=== PATIENT | female | born 1945 | race Caucasian/White ===

== ENCOUNTER 2021-09-09 10:45 | Inpatient (IN) | payer OTHER, MEDICAID ==
[~2021-09-09] VITALS: Ht 165.1 cm; Wt 79.1 kg
[2021-09-09 10:50] VITALS: BP_SYST 136
--- NOTE | 2021-09-09 10:50 | NUR ---
Pt to bed 4, attached to satellite project site monitor. Report to EMELI Allen.
--- NOTE | 2021-09-09 11:00 | NUR ---
Dr. Hogan at bedside to assess.
[2021-09-09 11:27] LABS: BASOPHILS % (AUTO) 0.5 % (0.0-2.0); EOSINOPHILS # (AUTO) 0.2 K/uL (0.0-0.4); EOSINOPHILS % (AUTO) 4.7 % (0.0-4.0); HEMATOCRIT 30.9 % (36-48); HEMOGLOBIN 10.3 g/dL (12.0-16.0); LYMPHOCYTES # (AUTO) 1.4 K/uL (1.0-5.5); LYMPHOCYTES % (AUTO) 27.1 % (20.5-51.5); MEAN CORPUSCULAR HEMOGLOBIN 31 pg (27-31); MEAN CORPUSCULAR HGB CONC 34 % (32-36); MEAN CORPUSCULAR VOLUME 92 fL (79.0-98.0); MONOCYTES # (AUTO) 0.6 K/uL (0.0-1.0); MONOCYTES % (AUTO) 10.8 % (1.7-9.3); NEUTROPHILS % (AUTO) 56.9 % (40.0-70.0); PLATELET COUNT (AUTO) 245 K/uL (130-430); RED BLOOD CELL COUNT(AUTO) 3.37 MIL/uL (4.2-6.2); RED CELL DISTRIBUTION WIDTH 14.9 % (9.0-15.0); WHITE BLOOD COUNT (AUTO) 5.2 K/uL (4.8-10.8)
[2021-09-09 11:35] LABS: ANION GAP 4 (5-15); CALCIUM 7.7 mg/dL (8.4-11.0); CHLORIDE 109 mmol/L (98-107); CREATININE 1.12 mg/dL (0.55-1.30); GLUCOSE 108 mg/dL (70-99); POTASSIUM 3.8 mmol/L (3.5-5.1); SODIUM SERUM 137 mmol/L (136-145); UREA NITROGEN, BLOOD 23 mg/dL (8-21)
[2021-09-09 11:44] LABS: ALANINE AMINOTRANSFERASE 17 U/L (12-78); ALBUMIN 2.5 g/dL (3.4-4.8); ASPARTATE AMINOTRANSFERASE 22 U/L (10-37); TOTAL BILIRUBIN 0.1 mg/dL (0.0-1.0)
--- NOTE | 2021-09-09 11:55 | NUR ---
BIB AMBULANCE WITH C/O CONFUSION. PT STATES SHE HAS A HOME NURSE WHO CAME TODAY AND PT WAS NT ACTING HERSELF. PT STATES SHE WAS SLEEPING AT TIME OF VISIT AND FELT THAT IS WHY SHE FELT CONFUSED. PT ADMITS TO GENERALIZED WEAKNESS X1 WEEK AND STATES HER SPEECH DOES NOT SEEM CLEAR USUAL. PT STATES SHE IS HAVING DIFFICULTY TEXTING, STATES HER HAND IS SHAKY WHICH IS NOT USUAL FOR HER. EQUAL INSTITUTIONAL ASSET MANAGER/PUSHES/FACIAL SYMMETRY. VSS. RESP EVEN AND UNLABORED. WILL CONT TO MONITOR
--- NOTE | 2021-09-09 14:23 | NUR ---
Admit bed requested Patient will be admitted to care of . Admitted to MS unit. Diagnosis ALOC Inpatient (Yes or No) Y Observation (Yes or No) N Orientation concerns or request close to nursing station (Yes or No) Y Covid Status NEG On vent or bipap N Isolation requirements N Needs a sitter N From Home (Yes or if No enter name of facility) Y Requires Dialysis (Yes or No) N Med Rec Completed (Yes of No) Y
[2021-09-09 14:56] LABS: BILIRUBIN,URINE NEGATIVE (NEGATIVE); BLOOD, URINE 2+ (NEGATIVE); COLOR,URINE YELLOW (YELLOW); GLUCOSE,URINE NEGATIVE (NEGATIVE); KETONES,URINE NEGATIVE (NEGATIVE); LEUKOCYTE ESTERASE ,URINE NEGATIVE (NEGATIVE); NITRITE, URINE NEGATIVE (NEGATIVE); PH,URINE 5.5 (5.0-8.0); PROTEIN URINE 1+ (NEGATIVE); UROBILINOGEN,URINE 0.2 (0.2-1.0)
--- NOTE | 2021-09-09 15:00 | NUR ---
PT RESTING COMFORTABLY. NO DISTRESS. URINE RESULTS PENDING. VSS. AWAITING ADMISSION. WILL CONT TO MONITOR
[2021-09-09 15:12] LABS: CLARITY/URINE HAZY (CLEAR)
[2021-09-09] MEDS ORDERED: ZOLPIDEM TARTRATE 5 MG TABLET PO PRN (15:15)
[2021-09-09] MEDS ORDERED: POTASSIUM CHLORIDE 20 MEQ TAB.PRT.SR PO PRN (15:15)
[2021-09-09] MEDS ORDERED: MAGNESIUM SULFATE 50 ML IV PRN (15:15)
[2021-09-09] MEDS ORDERED: ONDANSETRON HCL 4 MG/2 ML VIAL IVP PRN (15:15)
[2021-09-09] MEDS ORDERED: DOCUSATE SODIUM 100 MG CAPSULE PO PRN (15:15)
[2021-09-09] MEDS ORDERED: NALOXONE HCL 0.4 MG/ML AMP (NARCAN) IVP PRN ×2 (15:15)
[2021-09-09] MEDS ORDERED: ACETAMINOPHEN 325 MG TABLET PO PRN ×2 (15:15)
[2021-09-09] MEDS ORDERED: MORPHINE 2 MG/ML INJ. SYRINGE IVP PRN (15:15)
[2021-09-09] MEDS ORDERED: MUPIROCIN 2% TOPICAL OINTMENT 22 GM NS PRN (15:15)
[2021-09-09] MEDS ORDERED: LORazepam 2 MG/ML VIAL IVP PRN (15:15)
[2021-09-09 15:16] LABS: BARBITURATE, URINE NEGATIVE (NEG <=200); BENZODIAZEPINE, URINE NEGATIVE (NEG <=150); CANNABINOID, URINE NEGATIVE (NEG <=50); COCAINE, URINE NEGATIVE (NEG <=150); METHAMPHETAMINES SCREEN,URINE NEGATIVE (NEG <=500); OPIATE, URINE NEGATIVE (NEG <=100); PHENCYCLIDINE SCREEN,URINE NEGATIVE (NEG <=25); UR TRICYCLIC ANTIDEPRESSANTS NEGATIVE (NEG <=300); URINE AMPHETAMINE NEGATIVE (NEG <=500); URINE METHADONE NEGATIVE (NEG <=200); URINE OXYCODONE SCREEN POSITIVE (NEG <=100); URINE PROPOXYPHENE SCREEN POSITIVE (NEG <=300)
[2021-09-09 15:20] LABS: BACTERIA,URINE FEW /HPF (None Seen); WBC,URINE 0-3 /HPF (0-3)
[2021-09-09 15:21] LABS: MUCUS,URINE 1+ /LPF (None Seen)
--- NOTE | 2021-09-09 16:17 | NUR ---
NO CHANGE IN STATUS. VSS. AWAITING MEDICAL BED
[2021-09-09] MEDS: D5NS 1,000 ML IV SCH (17:33)
--- NOTE | 2021-09-09 21:40 | NUR ---
Pt awake in bed using phone. VSS. Safety precautions in place and connected to monitor.
[2021-09-09] MEDS ORDERED: LIP10 PO (21:49)
[2021-09-09] MEDS ORDERED: GABA-529 PO (21:49)
[2021-09-09] MEDS ORDERED: WARF1TAB84 PO (21:49)
[2021-09-09] MEDS ORDERED: CEFE2PIG2 IV (21:49)
--- NOTE | 2021-09-09 22:00 | NUR ---
Day nurse did not complete urine dipstick before sending urine to lab. Pt has not given urine since.
--- NOTE | 2021-09-09 22:12 | NUR ---
Patient will be admitted to care of Dr. Chao. Admitted to med surg unit. Will go to room 104A. Belongings list completed. Complete and up to date summary report printed. SBAR report given to Janet RN at bedside with opportunity for questions.
[2021-09-09 22:26] VITALS: BP_SYST 140
--- NOTE | 2021-09-09 23:00 | NUR ---
ADMISSION: The patient, VIRI KHAN, 76 y/o, F admitted by DIA MOMIN DO, was given written information regarding hospital policies, unit procedures and contact persons. Valuables were checked and [facility]. 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
[2021-09-09] MEDS: HEPARIN SODIUM,PORCINE 5,000 UNITS/ML VIAL SUBCUT SCH (23:04)
[2021-09-09] MEDS: MORPHINE 2 MG/ML INJ. SYRINGE IVP PRN (23:05)
[2021-09-10 00:29] VITALS: BP_SYST 126
--- NOTE | 2021-09-10 06:00 | NUR ---
PT RESTING COMFORTABLY IN BED, AOX4, NO DISTRESS OR DISCOMFORT NOTED, BREATHING EVEN AND UNLABORED, ALL FALL PROTOCOLS MAINTAINED, REPOSITIONS SELF PER COMFORT, MIDLINE SRIKANTH PRESENT UPON ADMISSION, CALL LIGHT WITHIN IMMEDIATE REACH, BED IN LOWEST POSITION,MEDICATED PRN PAIN X1, WILL ENDORSED TO AM NURSE FOR CONTINUITY OF CARE.
[2021-09-10] MEDS: D5NS 1,000 ML IV SCH ×2 (06:36→21:02)
[2021-09-10 06:37] LABS: BASOPHILS # (AUTO) 0.1 K/uL (0.0-0.2); BASOPHILS % (AUTO) 1.2 % (0.0-2.0); EOSINOPHILS # (AUTO) 0.2 K/uL (0.0-0.4); EOSINOPHILS % (AUTO) 5.4 % (0.0-4.0); HEMATOCRIT 31.8 % (36-48); HEMOGLOBIN 10.6 g/dL (12.0-16.0); LYMPHOCYTES # (AUTO) 1.2 K/uL (1.0-5.5); LYMPHOCYTES % (AUTO) 26.3 % (20.5-51.5); MEAN CORPUSCULAR HEMOGLOBIN 30 pg (27-31); MEAN CORPUSCULAR HGB CONC 33 % (32-36); MEAN CORPUSCULAR VOLUME 91 fL (79.0-98.0); MONOCYTES # (AUTO) 0.5 K/uL (0.0-1.0); MONOCYTES % (AUTO) 10.2 % (1.7-9.3); NEUTROPHILS # (AUTO) 2.5 K/uL (1.8-7.7); NEUTROPHILS % (AUTO) 56.9 % (40.0-70.0); PLATELET COUNT (AUTO) 249 K/uL (130-430); RED BLOOD CELL COUNT(AUTO) 3.51 MIL/uL (4.2-6.2); RED CELL DISTRIBUTION WIDTH 15.7 % (9.0-15.0); WHITE BLOOD COUNT (AUTO) 4.5 K/uL (4.8-10.8)
[2021-09-10 07:03] LABS: ANION GAP 9 (5-15); CALCIUM 8.1 mg/dL (8.4-11.0); CHLORIDE 110 mmol/L (98-107); CREATININE 0.78 mg/dL (0.55-1.30); GLUCOSE 99 mg/dL (70-99); POTASSIUM 3.8 mmol/L (3.5-5.1); SODIUM SERUM 142 mmol/L (136-145); UREA NITROGEN, BLOOD 14 mg/dL (8-21)
--- NOTE | 2021-09-10 07:26 | NUR ---
SHIFT REPORT REPORT GIVEN TO PATRIA RN FOR CONTINUITY OF CARE ALL QUESTIONS WERE ANSWERED AND RN VERBALIZED UNDERSTANDING.
[2021-09-10 08:00] VITALS: BP_SYST 103
[2021-09-10] MEDS: HEPARIN SODIUM,PORCINE 5,000 UNITS/ML VIAL SUBCUT SCH ×2 (09:06→21:00)
[2021-09-10 11:30] VITALS: BP_SYST 111
[2021-09-10] MEDS: MORPHINE 2 MG/ML INJ. SYRINGE IVP PRN ×2 (13:01→21:01)
--- NOTE | 2021-09-10 13:40 | NUR ---
CONSULTATION PAGED REASON FOR CONSULTATION:S/P I AND D LEFT LOWER EXTEMITY WAS CONSULT CALLED?Y -PERSON WHO WAS NOTIFIED:EXCHANGE CONSULTING PHYSICIAN:CRISTINA BHAKTA ELECTRICIAN CRANE MAINTENANCE SPECIALTY:SURGEON ELECTRICIAN CRANE MAINTENANCE PHONE NUMBER:[phone] REQUESTING PHYSICIAN:MIRELLA DELA CRUZ
[2021-09-10] MEDS: CLINDAMYCIN 600 MG in D5W 50 ML IV ONE ×2 (13:59→14:26)
--- NOTE | 2021-09-10 14:10 | NUR ---
When I was performing patient teaching on IV antibiotic Clindamycin, pt stated that she believes she's allergic to it-causing throat and chest pain.
--- NOTE | 2021-09-10 14:18 | NUR ---
Med not given, and MD notified. Physician stated that she will order a new medication.
[2021-09-10] MEDS ORDERED: ceFAZolin SODIUM 1 GM in D5W 50 ML IV ONE (15:00)
[2021-09-10 15:19] VITALS: BP_SYST 116
--- NOTE | 2021-09-10 18:45 | NUR ---
QUIET HOURS NOTED THROUGHOUT THE SHIFT. NO CHANGE IN CONDITION NOTED. NEUROVASCULAR CHECK TO LLE REMAINS INTACT. PT TOLERATED IV ANCEF WITHOUT S/S ADVERSE REACTIONS. PT REMAINS AWAKE,ALERT,AND COHERENT.
[2021-09-10] MEDS ORDERED: CLINDAMYCIN 600 MG in D5W 50 ML IV SCH (19:00)
--- NOTE | 2021-09-10 20:00 | NUR ---
REC'D PT IN BED AOX4, NO DISTRESS OR DISCOMFORT NOTED, BREATHING EVEN AND UNLABORED, DENIES PAIN, VITAL SIGNS STABLE, PT RESTING COMFORTABLY IN BED, ALL FALL PROTOCOLS MAINTAINED, BED IN LOWEST POSITION, CALL LIGHT WITHIN REACH, EDUCATED PT TO CALL FOR ASSISTANCE WHEN NEEDED, PT VERBALIZED UNDERSTANDING, WILL CONTINUE TO MONITOR.
[2021-09-10] MEDS: ceFAZolin SODIUM 1 GM in D5W 50 ML IV SCH (21:02)
[2021-09-11 00:06] VITALS: BP_SYST 120
--- NOTE | 2021-09-11 06:06 | NUR ---
NO CHANGES NOTED THROUGHOUT THE SHIFT, PT RESTING COMFORTABLY IN BED,NO DISTRESS OR DISCOMFORT NOTED, BREATHING EVEN AND UNLABORED, ALL FALL PROTOCOLS MAINTAINED, REPOSITIONS SELF PER COMFORT, WILL CONTINUE TO MONITOR.
[2021-09-11] MEDS: ceFAZolin SODIUM 1 GM in D5W 50 ML IV SCH ×3 (06:33→21:30)
[2021-09-11 07:06] LABS: EOSINOPHILS # (AUTO) 0.2 K/uL (0.0-0.4); EOSINOPHILS % (AUTO) 5.4 % (0.0-4.0); HEMATOCRIT 31.4 % (36-48); HEMOGLOBIN 10.5 g/dL (12.0-16.0); LYMPHOCYTES # (AUTO) 1.4 K/uL (1.0-5.5); LYMPHOCYTES % (AUTO) 31.5 % (20.5-51.5); MEAN CORPUSCULAR HEMOGLOBIN 31 pg (27-31); MEAN CORPUSCULAR HGB CONC 34 % (32-36); MEAN CORPUSCULAR VOLUME 91 fL (79.0-98.0); MONOCYTES # (AUTO) 0.5 K/uL (0.0-1.0); MONOCYTES % (AUTO) 10.1 % (1.7-9.3); NEUTROPHILS # (AUTO) 2.4 K/uL (1.8-7.7); PLATELET COUNT (AUTO) 232 K/uL (130-430); RED BLOOD CELL COUNT(AUTO) 3.45 MIL/uL (4.2-6.2); RED CELL DISTRIBUTION WIDTH 15.4 % (9.0-15.0); WHITE BLOOD COUNT (AUTO) 4.5 K/uL (4.8-10.8)
--- NOTE | 2021-09-11 07:17 | NUR ---
SHIFT CHANGE REPORT GIVEN TO HERMELINDO SAINZ FOR CONTINUITY OF CARE ALL QUESTIONS WERE ANSWERED AND RN VERBALIZED UNDERSTANDING.
[2021-09-11 07:30] LABS: ANION GAP 5 (5-15); CALCIUM 7.6 mg/dL (8.4-11.0); CHLORIDE 111 mmol/L (98-107); CREATININE 0.94 mg/dL (0.55-1.30); GLUCOSE 100 mg/dL (70-99); POTASSIUM 4.3 mmol/L (3.5-5.1); SODIUM SERUM 143 mmol/L (136-145); UREA NITROGEN, BLOOD 11 mg/dL (8-21)
[2021-09-11 08:00] VITALS: BP_SYST 127; BP_SYST 132
[2021-09-11] MEDS: HEPARIN SODIUM,PORCINE 5,000 UNITS/ML VIAL SUBCUT SCH ×2 (11:32→20:53)
[2021-09-11 12:00] VITALS: BP_SYST 132
--- NOTE | 2021-09-11 15:27 | NUR ---
WOUND EVALUATION: Late note for 09/11/2021 at 1527 secondary to patient care. Wound Consult received from Dr. Chao. Thank you, Dr. Chao, for the consult. Patient received in a Dover Bed with an Isoflex FRANK mattress, awake, alert, and oriented. Patient is unable to turn independently. Mike Score is a 22. Past Medical History: Hyperlipidemia, I & D of left lower extremity stasis ulcer. Recent Labs: WBC 4.5, RBC 3.45, hemoglobin 10.5, hematocrit 31.4, chloride 111, BUN 11, creatinine 0.94, glucose 100, calcium 7.6, magnesium 2.2, albumin 2.5, PTT 35.4. Intrinsic factors that delay wound healing: Venous insufficiency. Extrinsic factors that delay wound healing: Decreased mobility. Microbiology: MRSA screen results negative. Wound Assessment: 1. Venous Insufficiency Ulcer (status post I&D), present on admission. Wound bed has 80% yellow slough, 15% black tissue, 5% red tissue. No odor, scant yellow drainage. Periwound intact. Wound measures 9.3 cm x 6.4 cm. Wound appears to be infected as leukocytosis, yellow slough, and yellow purulent drainage are present. Recommend: Cleanse wound with normal saline. Apply moisture barrier cream to austin-wound. Apply Venelex ointment to wound bed. Cover with foam dressing. Wrap with Jacob wrap. Perform wound care daily, and as needed for dressing soiling or dislodgement. Also recommend: Reposition patient every 2 hours with pillow support and off-load pressure areas with pillows for pressure re-distribution. Offload, elevate and float bilateral heels with pillows. Perform skin care and monitor skin integrity Q shift. Use moisture barrier cream on buttocks and other moisture susceptible areas QID and as needed for soiling.
--- NOTE | 2021-09-11 16:27 | NUR ---
FOLLOWED UP THE SURGERY CONSULT ALEJANDRA KEYES, RE: S/P LOW HUMPHREY. SPOKE TO SHAILESH. Addendum: 09/11/21 at 1632 by Tania Luong IA/ DEBRIDEMENT OF L LOWER EXTRIMITY.
[2021-09-11 18:00] VITALS: BP_SYST 138
[2021-09-11 20:00] VITALS: BP_SYST 126
[2021-09-11] MEDS: MORPHINE 2 MG/ML INJ. SYRINGE IVP PRN (20:52)
[2021-09-12 01:05] VITALS: BP_SYST 130
[2021-09-12] MEDS: ceFAZolin SODIUM 1 GM in D5W 50 ML IV SCH ×2 (06:16→13:54)
[2021-09-12] MEDS: D5NS 1,000 ML IV SCH (06:17)
--- NOTE | 2021-09-12 07:25 | NUR ---
OPENING NOTE RECEIVED SBAR FROM NIGHT RN, PATIENT IN BED, RESPIRATIONS EVEN, NON LABORED, BED IN LOW AND LOCKED POSITION, CALL LIGHT WITHIN REACH, PATIENT A & O X 4 ABLE TO MAKE NEEDS KNOWN
--- NOTE | 2021-09-12 07:27 | NUR ---
SHIFT CHANGE REPORT GIVEN TO RAKEL RN FOR CONTINUITY OF CARE ALL QUESTIONS WERE ANSWERED AND RN VERBALIZED UNDERSTANDING.
[2021-09-12 07:38] LABS: BASOPHILS % (AUTO) 0.8 % (0.0-2.0); EOSINOPHILS # (AUTO) 0.2 K/uL (0.0-0.4); EOSINOPHILS % (AUTO) 4.4 % (0.0-4.0); HEMATOCRIT 31.9 % (36-48); HEMOGLOBIN 10.7 g/dL (12.0-16.0); LYMPHOCYTES # (AUTO) 1.9 K/uL (1.0-5.5); MEAN CORPUSCULAR HEMOGLOBIN 30 pg (27-31); MEAN CORPUSCULAR HGB CONC 34 % (32-36); MEAN CORPUSCULAR VOLUME 91 fL (79.0-98.0); MONOCYTES # (AUTO) 0.5 K/uL (0.0-1.0); MONOCYTES % (AUTO) 10.1 % (1.7-9.3); NEUTROPHILS # (AUTO) 2.7 K/uL (1.8-7.7); NEUTROPHILS % (AUTO) 49.7 % (40.0-70.0); PLATELET COUNT (AUTO) 242 K/uL (130-430); RED BLOOD CELL COUNT(AUTO) 3.52 MIL/uL (4.2-6.2); RED CELL DISTRIBUTION WIDTH 15.4 % (9.0-15.0); WHITE BLOOD COUNT (AUTO) 5.4 K/uL (4.8-10.8)
[2021-09-12 08:00] VITALS: BP_SYST 150
[2021-09-12 08:07] LABS: ANION GAP 4 (5-15); CALCIUM 7.8 mg/dL (8.4-11.0); CHLORIDE 109 mmol/L (98-107); CREATININE 0.88 mg/dL (0.55-1.30); GLUCOSE 94 mg/dL (70-99); POTASSIUM 4.2 mmol/L (3.5-5.1); SODIUM SERUM 141 mmol/L (136-145); UREA NITROGEN, BLOOD 10 mg/dL (8-21)
[2021-09-12] MEDS: HEPARIN SODIUM,PORCINE 5,000 UNITS/ML VIAL SUBCUT SCH (09:13)
--- NOTE | 2021-09-12 09:22 | NUR ---
PAIN PATIENT COMPLAINING OF PAIN 5/10 TO FOOT. OFFERED PATIENT MORPHINE, PATIENT DENIES AND REQUESTING NORCO. PAGED DR ARNOLD FOR NEW ORDERS
--- NOTE | 2021-09-12 09:27 | NUR ---
ATTENDING MD MANAGER BENEFIT, DR MCMAHON WAS CALLED, RE: PAIN MED. SPOKE TO
--- NOTE | 2021-09-12 09:35 | NUR ---
spoke with Dr Valladares, new order received for pain medication
[2021-09-12] MEDS ORDERED: HYDROcodone/ACETAMIN 5-325 MG TAB (NORCO/ VICODIN) PO PRN (09:45)
[2021-09-12 12:00] VITALS: BP_SYST 139
[2021-09-12] MEDS ORDERED: CEPH250C PO (12:13)
[2021-09-12] MEDS ORDERED: BALSAM PERU/CASTOR OIL 56.7 GM OINT...G. TP SCH (15:15)
[2021-09-12 15:23] VITALS: BP_SYST 139
--- NOTE | 2021-09-12 15:30 | NUR ---
Wound care provided wound care, cleansed with NS, applied ointments as ordered, covered with foam dressing, wrapped with gauze.
== END 2021-09-12 16:10 | disposition home or self-care (01) | DRG 602 ==
LOC: SED 10:45 → SMU 14:20
PROVIDERS: ADMIT General Practice; ATTEND General Practice
DX: L03.116 Cellulitis of left lower limb (principal); E43 Unspecified severe protein-calorie malnutrition; E86.0 Dehydration; E78.5 Hyperlipidemia, unspecified; Z20.822 Contact with and (suspected) exposure to COVID-19; I87.8 Other specified disorders of veins; D64.9 Anemia, unspecified; Z68.29 Body mass index [BMI] 29.0-29.9, adult; Z88.0 Allergy status to penicillin; Z79.899 Other long term (current) drug therapy
CPT/HCPCS: 36415; 70450-TC; 71045; 76376; 80048; 80053; 80307; 81000; 83036; 83735; 84484; 85025; 85730-TC; 87081; 93005; 99285; J0690; J1644; J2270; J2405; J3490; J7060

== ENCOUNTER 2021-10-24 14:56 | Inpatient (IN) | payer OTHER, MEDICAID ==
[~2021-10-24] VITALS: Ht 160 cm; Wt 65.8 kg
[~2021-10-24 14:56] MED LIST: CEPH250C PO; GABA-529 PO; LIP10 PO; WARF1TAB84 PO
--- NOTE | 2021-10-24 15:00 | NUR ---
Pt brought by ambulance, A&Ox4, pt presents to ER with wound on L lower leg/ yellow drainage noted, skin pink and warm, cap refill <3, VSS.
[2021-10-24] MEDS ORDERED: NACL 0.9% 1,000 ML IV ONE ×3 (15:15→19:00)
[2021-10-24 15:18] VITALS: BP_SYST 93
--- NOTE | 2021-10-24 15:20 | NUR ---
Dr Yee evaluating patient at bedside
[2021-10-24] MEDS ORDERED: VANCOMYCIN HCL 1,000 MG in NS 250 ML IV ONE (15:45)
[2021-10-24] MEDS ORDERED: KETOROLAC TROMETHAMINE 30 MG VIAL IVP ONE (15:45)
--- NOTE | 2021-10-24 16:00 | NUR ---
Patient to ER bed H1 to gown for evaluation. Side rails up. REESE CONTINUING CARE.
[2021-10-24] MEDS ORDERED: VANCOMYCIN HCL 1000 MG/VIAL IV ONE (16:08)
[2021-10-24 16:22] LABS: BASOPHILS % (AUTO) 0.1 % (0.0-2.0); HEMATOCRIT 29.4 % (36-48); HEMOGLOBIN 9.6 g/dL (12.0-16.0); LYMPHOCYTES # (AUTO) 1.3 K/uL (1.0-5.5); LYMPHOCYTES % (AUTO) 9.6 % (20.5-51.5); MEAN CORPUSCULAR HEMOGLOBIN 29 pg (27-31); MEAN CORPUSCULAR HGB CONC 33 % (32-36); MEAN CORPUSCULAR VOLUME 89 fL (79.0-98.0); MONOCYTES % (AUTO) 7.3 % (1.7-9.3); NEUTROPHILS # (AUTO) 11.2 K/uL (1.8-7.7); PLATELET COUNT (AUTO) 389 K/uL (130-430); RED BLOOD CELL COUNT(AUTO) 3.32 MIL/uL (4.2-6.2); RED CELL DISTRIBUTION WIDTH 15.1 % (9.0-15.0); WHITE BLOOD COUNT (AUTO) 13.6 K/uL (4.8-10.8)
[2021-10-24 16:36] LABS: ALANINE AMINOTRANSFERASE 13 U/L (12-78); ALBUMIN 1.9 g/dL (3.4-4.8); ASPARTATE AMINOTRANSFERASE 17 U/L (10-37); CALCIUM 8.4 mg/dL (8.4-11.0); CREATININE 0.92 mg/dL (0.55-1.30); GLUCOSE 117 mg/dL (70-99); TOTAL BILIRUBIN 0.2 mg/dL (0.0-1.0); UREA NITROGEN, BLOOD 16 mg/dL (8-21)
[2021-10-24 16:43] LABS: ANION GAP 10 (5-15); CHLORIDE 103 mmol/L (98-107); POTASSIUM 4.4 mmol/L (3.5-5.1); SODIUM SERUM 140 mmol/L (136-145)
--- NOTE | 2021-10-24 17:44 | NUR ---
Report given to Jermaine SAINZ
--- NOTE | 2021-10-24 17:59 | NUR ---
Admit bed requested Patient will be admitted to care of . Admitted to TELEMETRY unit. Diagnosis SEPSIS Inpatient (Yes or No) YES Observation (Yes or No) NO Orientation concerns or request close to nursing station (Yes or No) NO Covid Status NEG On vent or bipap NO Isolation requirements NO Needs a sitter NO From Home (Yes or if No enter name of facility) HOME Requires Dialysis (Yes or No) NO Med Rec Completed (Yes of No) YES
--- NOTE | 2021-10-24 19:35 | NUR ---
DRESSING CHANGE DONE TO LEFT FOOT. NO ISSUES AT THIS TIME.
--- NOTE | 2021-10-24 22:00 | NUR ---
Received Patient from ER A 76 years old female arrived to Medsurg/ Telemetry unit via gurney from ER. Full Code status as verbalized by patient. Allergic to PCN and Sulfa drugs. Under the care of Dr Montiel. Dr. Swan covering as on-call. Diagnosed with Sepsis and Left ankle wound related to vanous stasis. History of Hyperlipidemia. Patient alert and oriented x4, unlabored breathing. Complains of Left lower leg pain on a pain scale of 10/10. Able to ambulate with a cane. Called Dr. Swan for the patient admission. Orders received. Musselshell 10mg-325mg tab PRN q6, Restoril 15mg PRN QHS, CBC and CMP in the morning. Wound dressing changed, Wound photos measured and taken, filed to the chart. Met all needs for the patient. Carried out orders.
--- NOTE | 2021-10-24 22:11 | NUR ---
Paged Dr. Swan, Nora s/w Joanna
[2021-10-24] MEDS: D5/0.45 NS 1,000 ML IV SCH (22:52)
--- NOTE | 2021-10-24 23:00 | NUR ---
Second call for s/tierney Mata
[2021-10-24 23:08] VITALS: BP_SYST 115
--- NOTE | 2021-10-25 00:48 | NUR ---
Tiffani Swan s/w Jaqueline
[2021-10-25] MEDS ORDERED: HYDROcodone/ACETAMIN 10-325 MG TAB PO PRN ×2 (01:45→05:30)
[2021-10-25] MEDS: D5/0.45 NS 1,000 ML IV SCH ×2 (07:30→13:42)
[2021-10-25 07:47] LABS: BASOPHILS % (AUTO) 0.3 % (0.0-2.0); EOSINOPHILS # (AUTO) 0.1 K/uL (0.0-0.4); EOSINOPHILS % (AUTO) 0.8 % (0.0-4.0); HEMOGLOBIN 9.2 g/dL (12.0-16.0); LYMPHOCYTES # (AUTO) 0.9 K/uL (1.0-5.5); LYMPHOCYTES % (AUTO) 10.2 % (20.5-51.5); MEAN CORPUSCULAR HEMOGLOBIN 30 pg (27-31); MEAN CORPUSCULAR HGB CONC 34 % (32-36); MEAN CORPUSCULAR VOLUME 88 fL (79.0-98.0); MONOCYTES # (AUTO) 0.8 K/uL (0.0-1.0); MONOCYTES % (AUTO) 9.5 % (1.7-9.3); NEUTROPHILS # (AUTO) 6.7 K/uL (1.8-7.7); NEUTROPHILS % (AUTO) 79.2 % (40.0-70.0); PLATELET COUNT (AUTO) 372 K/uL (130-430); RED BLOOD CELL COUNT(AUTO) 3.08 MIL/uL (4.2-6.2); RED CELL DISTRIBUTION WIDTH 14.8 % (9.0-15.0); WHITE BLOOD COUNT (AUTO) 8.5 K/uL (4.8-10.8)
[2021-10-25 08:00] VITALS: BP_SYST 128
[2021-10-25 08:17] LABS: ALANINE AMINOTRANSFERASE 21 U/L (12-78); ALBUMIN 1.7 g/dL (3.4-4.8); ANION GAP 7 (5-15); ASPARTATE AMINOTRANSFERASE 37 U/L (10-37); CALCIUM 7.8 mg/dL (8.4-11.0); CHLORIDE 103 mmol/L (98-107); CREATININE 0.96 mg/dL (0.55-1.30); GLUCOSE 127 mg/dL (70-99); POTASSIUM 3.6 mmol/L (3.5-5.1); SODIUM SERUM 136 mmol/L (136-145); TOTAL BILIRUBIN 0.2 mg/dL (0.0-1.0); UREA NITROGEN, BLOOD 17 mg/dL (8-21)
[2021-10-25] MEDS ORDERED: NALOXONE HCL 0.4 MG/ML AMP (NARCAN) IVP PRN ×2 (10:00)
[2021-10-25] MEDS ORDERED: ONDANSETRON HCL 4 MG/2 ML VIAL IVP PRN (10:00)
[2021-10-25] MEDS ORDERED: LORazepam 2 MG/ML VIAL IVP PRN (10:00)
[2021-10-25] MEDS ORDERED: ACETAMINOPHEN 325 MG TABLET PO PRN ×2 (10:00→10:15)
[2021-10-25] MEDS ORDERED: GABAPENTIN 100 MG CAPSULE PO ONE (10:15)
[2021-10-25] MEDS ORDERED: ATORVASTATIN 10 MG TABLET PO ONE (10:15)
[2021-10-25] MEDS: CLINDAMYCIN 600 MG in D5W 50 ML IV SCH ×3 (11:19→23:17)
[2021-10-25 11:51] LABS: PROTHROMBIN TIME 28.6 SECS (9.5-12.5)
[2021-10-25 12:00] VITALS: BP_SYST 120
[2021-10-25] MEDS: NORMAL SALINE 5 ML DISP.SYRIN IVF SCH ×2 (13:42→21:22)
[2021-10-25] MEDS: HYDROcodone/ACETAMIN 10-325 MG TAB PO PRN ×2 (13:59→21:20)
[2021-10-25] MEDS ORDERED: NORMAL SALINE 5 ML DISP.SYRIN IVF SCH (14:00)
[2021-10-25 16:00] VITALS: BP_SYST 120
[2021-10-25] MEDS ORDERED: WARFARIN SODIUM 4 MG TABLET PO SCH (18:00)
[2021-10-25 19:00] VITALS: BP_SYST 101
[2021-10-25 20:00] VITALS: BP_SYST 101
[2021-10-25] MEDS: GABAPENTIN 100 MG CAPSULE PO SCH (21:19)
[2021-10-25] MEDS: TEMAZEPAM 15 MG CAPSULE PO PRN (21:19)
[2021-10-26] VITALS (8 sets, daily range): BP systolic 100–130
[2021-10-26] MEDS: NORMAL SALINE 5 ML DISP.SYRIN IVF SCH ×3 (05:09→21:26)
[2021-10-26] MEDS: CLINDAMYCIN 600 MG in D5W 50 ML IV SCH ×4 (05:09→23:41)
[2021-10-26] MEDS: D5/0.45 NS 1,000 ML IV SCH ×3 (05:10→20:26)
[2021-10-26] MEDS: HYDROcodone/ACETAMIN 10-325 MG TAB PO PRN ×3 (05:18→20:41)
[2021-10-26 07:53] LABS: ANION GAP 9 (5-15); CALCIUM 8.1 mg/dL (8.4-11.0); CHLORIDE 108 mmol/L (98-107); GLUCOSE 108 mg/dL (70-99); SODIUM SERUM 143 mmol/L (136-145); UREA NITROGEN, BLOOD 13 mg/dL (8-21)
[2021-10-26 08:09] LABS: INR 4.8 (0.8-1.2); PROTHROMBIN TIME 44.5 SECS (9.5-12.5)
[2021-10-26] MEDS ORDERED: WARFARIN SODIUM 1 MG TABLET PO SCH (09:00)
[2021-10-26 09:11] LABS: BASOPHILS % (AUTO) 0.7 % (0.0-2.0); EOSINOPHILS # (AUTO) 0.3 K/uL (0.0-0.4); EOSINOPHILS % (AUTO) 4.8 % (0.0-4.0); HEMATOCRIT 24.9 % (36-48); HEMOGLOBIN 8.6 g/dL (12.0-16.0); LYMPHOCYTES # (AUTO) 1.8 K/uL (1.0-5.5); LYMPHOCYTES % (AUTO) 31.3 % (20.5-51.5); MEAN CORPUSCULAR HEMOGLOBIN 30 pg (27-31); MEAN CORPUSCULAR HGB CONC 34 % (32-36); MEAN CORPUSCULAR VOLUME 87 fL (79.0-98.0); MONOCYTES # (AUTO) 0.7 K/uL (0.0-1.0); MONOCYTES % (AUTO) 12.2 % (1.7-9.3); NEUTROPHILS # (AUTO) 2.9 K/uL (1.8-7.7); PLATELET COUNT (AUTO) 342 K/uL (130-430); RED BLOOD CELL COUNT(AUTO) 2.86 MIL/uL (4.2-6.2); RED CELL DISTRIBUTION WIDTH 15.1 % (9.0-15.0)
[2021-10-26] MEDS: ATORVASTATIN 10 MG TABLET PO SCH (09:45)
[2021-10-26] MEDS: GABAPENTIN 100 MG CAPSULE PO SCH ×2 (09:46→20:27)
--- NOTE | 2021-10-26 10:24 | NUR ---
informed and aware about patient INR result today 4.8, PT 44.5. Thank you
[2021-10-26] MEDS ORDERED: PHYTONADIONE Non-Formulary 5 MG TABLET PO ONE (11:00)
[2021-10-26] MEDS ORDERED: PHYTONADIONE (Vitamin K) Oral Solution PO ONE (11:00)
[2021-10-26] MEDS ORDERED: CEFEPIME 1 GM in D5W 50 ML IV ONE (11:00)
[2021-10-26 11:57] LABS: WHITE BLOOD COUNT (AUTO) 5.6 K/uL (4.8-10.8)
--- NOTE | 2021-10-26 17:53 | NUR ---
Right IV access infiltrated. Removed right hand iv line. Started new iv access on left hand 22g x1 with good blood return. Patient tolerated procedure well.
--- NOTE | 2021-10-26 19:25 | NUR ---
END OF SHIFT REPORT GIVEN TO EMELI FOUNTAIN. THANK YOU
[2021-10-26] MEDS: CEFEPIME 1 GM in D5W 50 ML IV SCH (20:27)
[2021-10-26] MEDS: TEMAZEPAM 15 MG CAPSULE PO PRN (20:40)
[2021-10-27 04:00] VITALS: BP_SYST 105
[2021-10-27] MEDS: CLINDAMYCIN 600 MG in D5W 50 ML IV SCH ×4 (05:25→23:55)
[2021-10-27] MEDS: D5/0.45 NS 1,000 ML IV SCH ×2 (05:25→16:21)
[2021-10-27] MEDS: NORMAL SALINE 5 ML DISP.SYRIN IVF SCH ×3 (05:26→21:36)
[2021-10-27 08:00] VITALS: BP_SYST 117
--- NOTE | 2021-10-27 08:00 | NUR ---
OPENING NOTES: PATIENT EATING BREAKFAST. BREATHING EVEN AND NON LABORED TO RA. C/O PAIN OF LEFT FOOT. FALL, SAFETY AND ASPIRATION MEASURES REINFORCED. CALL LIGHT WITHIN REACH.
[2021-10-27] MEDS: HYDROcodone/ACETAMIN 10-325 MG TAB PO PRN ×3 (08:30→21:35)
[2021-10-27] MEDS: ATORVASTATIN 10 MG TABLET PO SCH (08:30)
[2021-10-27] MEDS: GABAPENTIN 100 MG CAPSULE PO SCH ×2 (08:30→21:35)
[2021-10-27] MEDS: CEFEPIME 1 GM in D5W 50 ML IV SCH ×2 (08:31→21:36)
[2021-10-27 09:36] LABS: BASOPHILS % (AUTO) 0.6 % (0.0-2.0); EOSINOPHILS # (AUTO) 0.4 K/uL (0.0-0.4); EOSINOPHILS % (AUTO) 4.9 % (0.0-4.0); HEMATOCRIT 28.3 % (36-48); HEMOGLOBIN 9.6 g/dL (12.0-16.0); LYMPHOCYTES # (AUTO) 1.3 K/uL (1.0-5.5); LYMPHOCYTES % (AUTO) 17.3 % (20.5-51.5); MEAN CORPUSCULAR HEMOGLOBIN 30 pg (27-31); MEAN CORPUSCULAR HGB CONC 34 % (32-36); MEAN CORPUSCULAR VOLUME 87 fL (79.0-98.0); MONOCYTES # (AUTO) 0.6 K/uL (0.0-1.0); MONOCYTES % (AUTO) 8.1 % (1.7-9.3); NEUTROPHILS # (AUTO) 5.3 K/uL (1.8-7.7); NEUTROPHILS % (AUTO) 69.1 % (40.0-70.0); PLATELET COUNT (AUTO) 419 K/uL (130-430); RED BLOOD CELL COUNT(AUTO) 3.24 MIL/uL (4.2-6.2); RED CELL DISTRIBUTION WIDTH 14.9 % (9.0-15.0); WHITE BLOOD COUNT (AUTO) 7.7 K/uL (4.8-10.8)
[2021-10-27 11:26] VITALS: BP_SYST 120
[2021-10-27 11:54] LABS: INR 1.5 (0.8-1.2); PROTHROMBIN TIME 15.3 SECS (9.5-12.5)
[2021-10-27 12:11] LABS: ERYTHROCYTE SEDIMENTATION RATE 107 MM/HR (0-20)
--- NOTE | 2021-10-27 12:48 | NUR ---
Dietitian Recommendations * Continue w/ Regular diet * Add Bhupinder BID for wound healing * Consider Vit C and MVI Please refer to Nutrition Assessment for details. DEEPAK JULIAN Addendum: 10/27/21 at [address] Amended: Links added.
[2021-10-27 13:09] LABS: ALANINE AMINOTRANSFERASE 31 U/L (12-78); ALBUMIN 1.9 g/dL (3.4-4.8); ANION GAP 6 (5-15); ASPARTATE AMINOTRANSFERASE 35 U/L (10-37); C-REACTIVE PROTEIN QUANT 6.2 mg/dL (0-0.5); CALCIUM 9.1 mg/dL (8.4-11.0); CHLORIDE 108 mmol/L (98-107); CREATININE 1.09 mg/dL (0.55-1.30); GLUCOSE 97 mg/dL (70-99); POTASSIUM 4.3 mmol/L (3.5-5.1); SODIUM SERUM 142 mmol/L (136-145); TOTAL BILIRUBIN 0.2 mg/dL (0.0-1.0); UREA NITROGEN, BLOOD 15 mg/dL (8-21)
[2021-10-27 15:35] VITALS: BP_SYST 97
[2021-10-27] MEDS: WARFARIN SODIUM 4 MG TABLET PO SCH (18:18)
--- NOTE | 2021-10-27 18:50 | NUR ---
CLOSING NOTES: PATIENT RESTING IN BED. NO S/S OF ACUTE DISTRESS NOTED. NEEDS MET THROUGHOUT SHIFT. FALL AND SAFETY MEASURES PROVIDED. CALL LIGHT WITHIN REACH.
[2021-10-27 20:15] VITALS: BP_SYST 108
[2021-10-27] MEDS: TEMAZEPAM 15 MG CAPSULE PO PRN (21:35)
[2021-10-28] VITALS: BP_SYST 100
[2021-10-28] MEDS: D5/0.45 NS 1,000 ML IV SCH (03:47)
[2021-10-28] MEDS: CLINDAMYCIN 600 MG in D5W 50 ML IV SCH ×4 (06:00→17:45)
[2021-10-28] MEDS: NORMAL SALINE 5 ML DISP.SYRIN IVF SCH ×5 (06:00→22:02)
[2021-10-28 06:55] LABS: BASOPHILS # (AUTO) 0.1 K/uL (0.0-0.2); BASOPHILS % (AUTO) 1.4 % (0.0-2.0); EOSINOPHILS # (AUTO) 0.4 K/uL (0.0-0.4); EOSINOPHILS % (AUTO) 5.5 % (0.0-4.0); HEMATOCRIT 27.4 % (36-48); MEAN CORPUSCULAR HEMOGLOBIN 29 pg (27-31); MEAN CORPUSCULAR HGB CONC 33 % (32-36); MEAN CORPUSCULAR VOLUME 88 fL (79.0-98.0); MONOCYTES # (AUTO) 0.7 K/uL (0.0-1.0); MONOCYTES % (AUTO) 9.5 % (1.7-9.3); NEUTROPHILS # (AUTO) 3.8 K/uL (1.8-7.7); NEUTROPHILS % (AUTO) 54.6 % (40.0-70.0); PLATELET COUNT (AUTO) 418 K/uL (130-430); RED BLOOD CELL COUNT(AUTO) 3.13 MIL/uL (4.2-6.2)
[2021-10-28 07:45] LABS: INR 1.4 (0.8-1.2); PROTHROMBIN TIME 13.8 SECS (9.5-12.5)
[2021-10-28 08:00] VITALS: BP_SYST 115
--- NOTE | 2021-10-28 08:00 | NUR ---
OPENING NOTES: PATIENT EATING BREAKFAST. HOB ELEVATED. DENIES ANY DISCOMFORT AT THIS TIME. FALL AND SAFETY MEASURES REINFORCED. CALL LIGHT WITHIN REACH.
[2021-10-28 08:15] LABS: ANION GAP 3 (5-15); C-REACTIVE PROTEIN QUANT 5.4 mg/dL (0-0.5); CALCIUM 8.4 mg/dL (8.4-11.0); CHLORIDE 107 mmol/L (98-107); CREATININE 1.05 mg/dL (0.55-1.30); GLUCOSE 81 mg/dL (70-99); POTASSIUM 3.7 mmol/L (3.5-5.1); SODIUM SERUM 138 mmol/L (136-145); UREA NITROGEN, BLOOD 17 mg/dL (8-21)
--- NOTE | 2021-10-28 08:45 | NUR ---
IV REINSERTION: IV SITE INFILTRATED AT LEFT AC. PULLED OUT, INTACT IV CATHETER. IV REINSERTED AT LEFT WRIST GAUGE 20. IV INFUSING WELL. Addendum: 10/28/21 at 0903 by Ernesto Hussein RN CORRECTION: GAUGE 22
[2021-10-28] MEDS: ATORVASTATIN 10 MG TABLET PO SCH (08:55)
[2021-10-28] MEDS: GABAPENTIN 100 MG CAPSULE PO SCH ×2 (08:55→21:55)
[2021-10-28] MEDS: CEFEPIME 1 GM in D5W 50 ML IV SCH ×2 (08:56→21:56)
[2021-10-28] MEDS: HYDROcodone/ACETAMIN 10-325 MG TAB PO PRN ×3 (09:12→21:55)
[2021-10-28 10:19] LABS: ERYTHROCYTE SEDIMENTATION RATE 109 MM/HR (0-20)
[2021-10-28 12:05] VITALS: BP_SYST 118
[2021-10-28 16:00] VITALS: BP_SYST 112
[2021-10-28] MEDS: WARFARIN SODIUM 4 MG TABLET PO SCH (17:45)
--- NOTE | 2021-10-28 18:53 | NUR ---
CLOSING NOTES: PATIENT RESTING IN BED. NO S/S OF ACUTE DISTRESS NOTED. NEEDS MET THROUGHOUT SHIFT. FALL AND SAFETY MEASURES PROVIDED. CALL LIGHT WITHIN REACH.
[2021-10-28 19:00] VITALS: BP_SYST 115
[2021-10-28 20:15] VITALS: BP_SYST 115
[2021-10-28] MEDS: TEMAZEPAM 15 MG CAPSULE PO PRN (21:55)
[2021-10-29] MEDS: CLINDAMYCIN 600 MG in D5W 50 ML IV SCH ×4 (00:33→17:22)
[2021-10-29 01:13] VITALS: BP_SYST 105
[2021-10-29 04:00] VITALS: BP_SYST 109
[2021-10-29] MEDS: NORMAL SALINE 5 ML DISP.SYRIN IVF SCH ×6 (05:22→22:13)
[2021-10-29 07:49] LABS: BASOPHILS % (AUTO) 0.5 % (0.0-2.0); EOSINOPHILS # (AUTO) 0.4 K/uL (0.0-0.4); EOSINOPHILS % (AUTO) 5.8 % (0.0-4.0); HEMOGLOBIN 8.9 g/dL (12.0-16.0); LYMPHOCYTES # (AUTO) 2.1 K/uL (1.0-5.5); LYMPHOCYTES % (AUTO) 30.8 % (20.5-51.5); MEAN CORPUSCULAR HEMOGLOBIN 30 pg (27-31); MEAN CORPUSCULAR HGB CONC 34 % (32-36); MEAN CORPUSCULAR VOLUME 87 fL (79.0-98.0); MONOCYTES # (AUTO) 0.5 K/uL (0.0-1.0); MONOCYTES % (AUTO) 6.7 % (1.7-9.3); NEUTROPHILS # (AUTO) 3.8 K/uL (1.8-7.7); NEUTROPHILS % (AUTO) 56.2 % (40.0-70.0); PLATELET COUNT (AUTO) 396 K/uL (130-430); RED CELL DISTRIBUTION WIDTH 14.9 % (9.0-15.0); WHITE BLOOD COUNT (AUTO) 6.8 K/uL (4.8-10.8)
[2021-10-29 07:55] LABS: ALANINE AMINOTRANSFERASE 25 U/L (12-78); ANION GAP 5 (5-15); ASPARTATE AMINOTRANSFERASE 28 U/L (10-37); CALCIUM 8.5 mg/dL (8.4-11.0); CHLORIDE 107 mmol/L (98-107); CREATININE 0.93 mg/dL (0.55-1.30); GLUCOSE 88 mg/dL (70-99); SODIUM SERUM 141 mmol/L (136-145); TOTAL BILIRUBIN 0.1 mg/dL (0.0-1.0); UREA NITROGEN, BLOOD 15 mg/dL (8-21)
[2021-10-29 07:56] LABS: ALBUMIN 1.7 g/dL (3.4-4.8); C-REACTIVE PROTEIN QUANT 3.3 mg/dL (0-0.5)
[2021-10-29 08:00] VITALS: BP_SYST 120
[2021-10-29 08:10] LABS: INR 1.5 (0.8-1.2); PROTHROMBIN TIME 15.3 SECS (9.5-12.5)
[2021-10-29] MEDS: GABAPENTIN 100 MG CAPSULE PO SCH ×2 (08:41→20:41)
[2021-10-29] MEDS: ATORVASTATIN 10 MG TABLET PO SCH (08:41)
[2021-10-29] MEDS: HYDROcodone/ACETAMIN 10-325 MG TAB PO PRN ×4 (08:42→22:00)
[2021-10-29 08:54] LABS: ERYTHROCYTE SEDIMENTATION RATE 111 MM/HR (0-20)
[2021-10-29] MEDS: CEFEPIME 1 GM in D5W 50 ML IV SCH ×2 (10:54→20:41)
[2021-10-29 12:00] VITALS: BP_SYST 124
[2021-10-29 16:00] VITALS: BP_SYST 115
[2021-10-29] MEDS: WARFARIN SODIUM 4 MG TABLET PO SCH (17:21)
--- NOTE | 2021-10-29 18:12 | NUR ---
P.T. NOTES P.T. EVAL COMPLETED; REFER TO EVAL FOR DETAILS.
[2021-10-29 20:16] VITALS: BP_SYST 124
[2021-10-29] MEDS: TEMAZEPAM 15 MG CAPSULE PO PRN (21:59)
[2021-10-30] VITALS (7 sets, daily range): BP systolic 101–112
[2021-10-30] MEDS: CLINDAMYCIN 600 MG in D5W 50 ML IV SCH ×2 (00:10→05:15)
[2021-10-30] MEDS: NORMAL SALINE 5 ML DISP.SYRIN IVF SCH ×4 (05:15→21:28)
[2021-10-30 06:56] LABS: BASOPHILS % (AUTO) 0.7 % (0.0-2.0); EOSINOPHILS # (AUTO) 0.4 K/uL (0.0-0.4); EOSINOPHILS % (AUTO) 6.2 % (0.0-4.0); HEMOGLOBIN 9.4 g/dL (12.0-16.0); LYMPHOCYTES # (AUTO) 1.8 K/uL (1.0-5.5); LYMPHOCYTES % (AUTO) 27.8 % (20.5-51.5); MEAN CORPUSCULAR HEMOGLOBIN 29 pg (27-31); MEAN CORPUSCULAR HGB CONC 34 % (32-36); MEAN CORPUSCULAR VOLUME 87 fL (79.0-98.0); MONOCYTES # (AUTO) 0.5 K/uL (0.0-1.0); MONOCYTES % (AUTO) 8.1 % (1.7-9.3); NEUTROPHILS # (AUTO) 3.8 K/uL (1.8-7.7); NEUTROPHILS % (AUTO) 57.2 % (40.0-70.0); PLATELET COUNT (AUTO) 435 K/uL (130-430); RED BLOOD CELL COUNT(AUTO) 3.22 MIL/uL (4.2-6.2); WHITE BLOOD COUNT (AUTO) 6.6 K/uL (4.8-10.8)
[2021-10-30 07:16] LABS: INR 1.8 (0.8-1.2); PROTHROMBIN TIME 17.8 SECS (9.5-12.5)
[2021-10-30 08:21] LABS: ANION GAP 6 (5-15); C-REACTIVE PROTEIN QUANT 2.6 mg/dL (0-0.5); CALCIUM 8.5 mg/dL (8.4-11.0); CHLORIDE 105 mmol/L (98-107); CREATININE 0.95 mg/dL (0.55-1.30); GLUCOSE 87 mg/dL (70-99); POTASSIUM 3.9 mmol/L (3.5-5.1); SODIUM SERUM 140 mmol/L (136-145); UREA NITROGEN, BLOOD 17 mg/dL (8-21)
[2021-10-30] MEDS: ATORVASTATIN 10 MG TABLET PO SCH (08:54)
[2021-10-30] MEDS: GABAPENTIN 100 MG CAPSULE PO SCH ×2 (08:55→20:26)
[2021-10-30] MEDS: HYDROcodone/ACETAMIN 10-325 MG TAB PO PRN ×2 (08:55→20:27)
[2021-10-30] MEDS: CEFEPIME 1 GM in D5W 50 ML IV SCH ×2 (08:56→20:25)
[2021-10-30 12:27] LABS: ERYTHROCYTE SEDIMENTATION RATE 107 MM/HR (0-20)
--- NOTE | 2021-10-30 16:12 | NUR ---
Attempted PT visit, pt refused and states she is in a lot of pain and waiting to have bandages for her wound changed. RN made aware.
[2021-10-30] MEDS: WARFARIN SODIUM 4 MG TABLET PO SCH (19:05)
[2021-10-30] MEDS: TEMAZEPAM 15 MG CAPSULE PO PRN (20:26)
--- NOTE | 2021-10-31 00:20 | NUR ---
Midline Insertion done by Ji Ramirez Location: Left Upper Arm basilic vein Patient stable, complained of mild pain due to insertion but refused pain medication as verbalize that she can tolerate the pain.
[2021-10-31 04:00] VITALS: BP_SYST 115
[2021-10-31] MEDS: NORMAL SALINE 5 ML DISP.SYRIN IVF SCH ×3 (06:20→21:11)
[2021-10-31 07:00] VITALS: BP_SYST 104
[2021-10-31 08:00] VITALS: BP_SYST 104
[2021-10-31 08:14] LABS: BASOPHILS % (AUTO) 0.7 % (0.0-2.0); EOSINOPHILS # (AUTO) 0.3 K/uL (0.0-0.4); EOSINOPHILS % (AUTO) 4.6 % (0.0-4.0); HEMATOCRIT 27.1 % (36-48); HEMOGLOBIN 9.1 g/dL (12.0-16.0); LYMPHOCYTES # (AUTO) 1.5 K/uL (1.0-5.5); LYMPHOCYTES % (AUTO) 21.8 % (20.5-51.5); MEAN CORPUSCULAR HEMOGLOBIN 29 pg (27-31); MEAN CORPUSCULAR HGB CONC 34 % (32-36); MEAN CORPUSCULAR VOLUME 88 fL (79.0-98.0); MONOCYTES # (AUTO) 0.6 K/uL (0.0-1.0); MONOCYTES % (AUTO) 9.4 % (1.7-9.3); NEUTROPHILS # (AUTO) 4.3 K/uL (1.8-7.7); NEUTROPHILS % (AUTO) 63.5 % (40.0-70.0); PLATELET COUNT (AUTO) 407 K/uL (130-430); WHITE BLOOD COUNT (AUTO) 6.8 K/uL (4.8-10.8)
[2021-10-31 08:39] LABS: INR 1.7 (0.8-1.2); PROTHROMBIN TIME 16.5 SECS (9.5-12.5)
[2021-10-31] MEDS: CEFEPIME 1 GM in D5W 50 ML IV SCH ×2 (09:10→21:04)
[2021-10-31] MEDS: GABAPENTIN 100 MG CAPSULE PO SCH ×2 (09:10→21:02)
[2021-10-31] MEDS: ATORVASTATIN 10 MG TABLET PO SCH (09:10)
[2021-10-31 09:15] LABS: ALANINE AMINOTRANSFERASE 25 U/L (12-78); ALBUMIN 1.9 g/dL (3.4-4.8); ANION GAP 6 (5-15); ASPARTATE AMINOTRANSFERASE 26 U/L (10-37); C-REACTIVE PROTEIN QUANT 2.4 mg/dL (0-0.5); CALCIUM 8.1 mg/dL (8.4-11.0); CHLORIDE 102 mmol/L (98-107); CREATININE 0.98 mg/dL (0.55-1.30); GLUCOSE 93 mg/dL (70-99); POTASSIUM 3.8 mmol/L (3.5-5.1); SODIUM SERUM 138 mmol/L (136-145); TOTAL BILIRUBIN 0.2 mg/dL (0.0-1.0); UREA NITROGEN, BLOOD 18 mg/dL (8-21)
[2021-10-31] MEDS: HYDROcodone/ACETAMIN 10-325 MG TAB PO PRN ×2 (10:06→16:04)
[2021-10-31] MEDS ORDERED: WARFARIN SODIUM 4 MG PO (10:10)
[2021-10-31] MEDS ORDERED: HYDR-3919 PO (10:10)
[2021-10-31] MEDS ORDERED: TEMA15CA5 PO (10:10)
[2021-10-31] MEDS ORDERED: CEFE2FRO IV (10:10)
[2021-10-31] MEDS ORDERED: DOXY100C5 PO (10:10)
[2021-10-31 12:17] LABS: ERYTHROCYTE SEDIMENTATION RATE 111 MM/HR (0-20)
--- NOTE | 2021-10-31 14:30 | NUR ---
WOUND EVALUATION: Wound Consult received from Dr. Ricardo Díaz. Thank you, Dr. Díaz, for the consult. Patient received in a [place] Bed with an Isoflex FRANK mattress, awake, alert, and oriented. Patient is able to turn independently. Mike Score is a 22. Past Medical History: CVA, Hypotension, Chronic Cellulitis, Venous Insufficiency Ulcer Left Lower Extremity, Hyperlipidemia, I & D of Left Lower Extremity Venous Ulcer. Patient was admitted for acute onset of fever, chills, fatigue, headache and increased thirst and recommendation by her physician for IV antibiotic therapy. Recent Labs: WBC 6.8, RBC 3.10, hemoglobin 9.1, hematocrit 27.1, ESR 111, calcium 8.1, C-reactive protein 2.4, albumin 1.9, PT 16.5, INR 1.7. Microbiology: Blood culture results x2 negative. Wound culture results positive for Pseudomonas aeruginosa and Enterococcus faecalis. Intrinsic factors that delay wound healing: Venous insufficiency. Extrinsic factors that delay wound healing: Decreased mobility. Wound Assessment: 1. Venous Insufficiency Ulcer, present on admission. Wound bed has 90% yellow slough, 10% dark red tissue. No odor, small green and yellow drainage. Periwound intact. Wound measures 12.0 cm x 8.5 cm. Recommend: Cleanse wound with normal saline. Apply SurePrep to austin-wound. Apply Venelex ointment to wound bed. Cover with non-adhesive foam dressings. Wrap with Jacob wrap. Perform wound care daily, and as needed for dressing soiling or dislodgement. Elevate bilateral lower extremities as tolerated. Also recommend: Reposition patient every 2 hours with pillow support and off-load pressure areas with pillows for pressure re-distribution. Offload, elevate and float bilateral heels with pillows. Elevate bilateral lower extremities as tolerated. Perform skin care and monitor skin integrity Q shift. Use moisture barrier cream on buttocks and other moisture susceptible areas QID and as needed for soiling.
[2021-10-31 16:00] VITALS: BP_SYST 104
--- NOTE | 2021-10-31 17:10 | NUR ---
IV order receive, no nursing available to adminiter IV, handoff to afterhours to continue searching. they will contact once IV is secured.
[2021-10-31] MEDS ORDERED: WARFARIN SODIUM 5 MG TABLET PO SCH (18:00)
[2021-10-31 19:00] VITALS: BP_SYST 117
[2021-10-31 20:00] VITALS: BP_SYST 117
[2021-10-31] MEDS: DOXYCYCLINE HYCLATE 100 MG CAPSULE PO SCH (21:02)
[2021-10-31] MEDS: HYDROcodone/ACETAMIN 5-325 MG TAB (NORCO/ VICODIN) PO PRN (22:27)
[2021-11-01 04:00] VITALS: BP_SYST 93
[2021-11-01] MEDS: NORMAL SALINE 5 ML DISP.SYRIN IVF SCH ×3 (06:00→21:54)
[2021-11-01 07:00] VITALS: BP_SYST 103
[2021-11-01 08:00] VITALS: BP_SYST 110
[2021-11-01 08:04] LABS: BASOPHILS % (AUTO) 0.6 % (0.0-2.0); EOSINOPHILS # (AUTO) 0.3 K/uL (0.0-0.4); EOSINOPHILS % (AUTO) 4.8 % (0.0-4.0); HEMATOCRIT 27.3 % (36-48); HEMOGLOBIN 9.3 g/dL (12.0-16.0); LYMPHOCYTES # (AUTO) 1.6 K/uL (1.0-5.5); LYMPHOCYTES % (AUTO) 27.5 % (20.5-51.5); MEAN CORPUSCULAR HEMOGLOBIN 30 pg (27-31); MEAN CORPUSCULAR HGB CONC 34 % (32-36); MEAN CORPUSCULAR VOLUME 87 fL (79.0-98.0); MONOCYTES # (AUTO) 0.6 K/uL (0.0-1.0); MONOCYTES % (AUTO) 11.5 % (1.7-9.3); NEUTROPHILS # (AUTO) 3.1 K/uL (1.8-7.7); NEUTROPHILS % (AUTO) 55.6 % (40.0-70.0); PLATELET COUNT (AUTO) 413 K/uL (130-430); RED BLOOD CELL COUNT(AUTO) 3.12 MIL/uL (4.2-6.2); RED CELL DISTRIBUTION WIDTH 14.9 % (9.0-15.0); WHITE BLOOD COUNT (AUTO) 5.6 K/uL (4.8-10.8)
[2021-11-01 08:10] LABS: INR 1.6 (0.8-1.2); PROTHROMBIN TIME 15.5 SECS (9.5-12.5)
[2021-11-01 08:14] LABS: ANION GAP 4 (5-15); C-REACTIVE PROTEIN QUANT 2.5 mg/dL (0-0.5); CALCIUM 8.6 mg/dL (8.4-11.0); CHLORIDE 102 mmol/L (98-107); CREATININE 0.93 mg/dL (0.55-1.30); GLUCOSE 93 mg/dL (70-99); POTASSIUM 4.3 mmol/L (3.5-5.1); SODIUM SERUM 138 mmol/L (136-145); UREA NITROGEN, BLOOD 21 mg/dL (8-21)
[2021-11-01] MEDS: HYDROcodone/ACETAMIN 10-325 MG TAB PO PRN ×2 (09:01→18:10)
[2021-11-01] MEDS: CEFEPIME 1 GM in D5W 50 ML IV SCH ×2 (09:01→21:53)
[2021-11-01] MEDS: GABAPENTIN 100 MG CAPSULE PO SCH ×2 (09:02→21:54)
[2021-11-01] MEDS: ATORVASTATIN 10 MG TABLET PO SCH (09:02)
[2021-11-01] MEDS: DOXYCYCLINE HYCLATE 100 MG CAPSULE PO SCH ×2 (09:02→21:54)
[2021-11-01 12:22] LABS: ERYTHROCYTE SEDIMENTATION RATE 109 MM/HR (0-20)
[2021-11-01 16:00] VITALS: BP_SYST 103
--- NOTE | 2021-11-01 16:22 | NUR ---
Nutrition F/U RD reviewed pt's current EMR including diet Hx, physician notes, nursing notes, pertinent labs/meds/procedures, care trends, and care activity. Short note d/t high workload. Current Diet Order/Nutrition Support: Regular x7 days RD met w/ pt at bedside earlier today. Pt reported good appetite, tolerating diet well. Agreeable to implementing Bhupinder BID (orange-flavored) starting tonight to promote wound healing. Pt inquired about probiotics -- RD offered yogurt TID w/ meals; pt appreciative. Encouraged pt to maintain adequate nutrition for optimal healing. Low nutritional risk; RD to F/U within 7 days.
[2021-11-01] MEDS: WARFARIN SODIUM 6 MG TABLET PO SCH (18:00)
[2021-11-01 20:00] VITALS: BP_SYST 111
[2021-11-01] MEDS: TEMAZEPAM 15 MG CAPSULE PO PRN (21:54)
[2021-11-01] MEDS: HYDROcodone/ACETAMIN 5-325 MG TAB (NORCO/ VICODIN) PO PRN (22:07)
[2021-11-02] VITALS: BP_SYST 95
--- NOTE | 2021-11-02 06:00 | NUR ---
PT RESTING COMFORTABLY IN BED NO S/S OF DISTRESS OR DISCOMFORT NOTED THROUGHOUT THE SHIFT, WILL ENDORSED TO AM NURSE FOR CONTINUITY OF CARE
[2021-11-02] MEDS: NORMAL SALINE 5 ML DISP.SYRIN IVF SCH ×3 (06:52→21:23)
--- NOTE | 2021-11-02 07:35 | NUR ---
OPEN NOTE Patient resting in bed on arrival. She complained of pain to left lower foot ulcer. Requested pain medication for it. Will be giving to her shortly. No SOB, No notable signs of distress other than foot pain. Patient noted to have Midline which was placed on 10/30. Patient is A/O x 4 and is noted as independent. All needs met and safety checks in place. Will continue to monitor.
--- NOTE | 2021-11-02 07:52 | NUR ---
SHIFT CHANGE REPORT REPORT GIVEN TO SALLY SUPERVISOR FABRICATION FOR CONTINUITY OF CARE, ALL QUESTIONS WERE ANSWERED AND SUPERVISOR FABRICATION VERBALIZED UNDERSTANDING.
[2021-11-02 08:05] VITALS: BP_SYST 102
[2021-11-02 08:07] LABS: BASOPHILS % (AUTO) 0.7 % (0.0-2.0); EOSINOPHILS # (AUTO) 0.3 K/uL (0.0-0.4); EOSINOPHILS % (AUTO) 4.1 % (0.0-4.0); HEMATOCRIT 28.1 % (36-48); HEMOGLOBIN 9.4 g/dL (12.0-16.0); LYMPHOCYTES # (AUTO) 1.4 K/uL (1.0-5.5); LYMPHOCYTES % (AUTO) 23.3 % (20.5-51.5); MEAN CORPUSCULAR HEMOGLOBIN 29 pg (27-31); MEAN CORPUSCULAR HGB CONC 34 % (32-36); MEAN CORPUSCULAR VOLUME 87 fL (79.0-98.0); MONOCYTES # (AUTO) 0.7 K/uL (0.0-1.0); MONOCYTES % (AUTO) 10.9 % (1.7-9.3); NEUTROPHILS # (AUTO) 3.7 K/uL (1.8-7.7); PLATELET COUNT (AUTO) 418 K/uL (130-430); RED BLOOD CELL COUNT(AUTO) 3.21 MIL/uL (4.2-6.2); RED CELL DISTRIBUTION WIDTH 15.3 % (9.0-15.0); WHITE BLOOD COUNT (AUTO) 6.1 K/uL (4.8-10.8)
[2021-11-02] MEDS: HYDROcodone/ACETAMIN 5-325 MG TAB (NORCO/ VICODIN) PO PRN ×2 (08:19→21:22)
[2021-11-02 08:41] LABS: INR 1.5 (0.8-1.2); PROTHROMBIN TIME 14.7 SECS (9.5-12.5)
[2021-11-02] MEDS: DOXYCYCLINE HYCLATE 100 MG CAPSULE PO SCH ×2 (09:07→21:21)
[2021-11-02] MEDS: GABAPENTIN 100 MG CAPSULE PO SCH ×2 (09:07→21:21)
[2021-11-02] MEDS: BALSAM PERU/CASTOR OIL 56.7 GM OINT...G. TP SCH (09:07)
[2021-11-02] MEDS: ATORVASTATIN 10 MG TABLET PO SCH (09:07)
[2021-11-02 09:10] LABS: ANION GAP 3 (5-15); C-REACTIVE PROTEIN QUANT 2.1 mg/dL (0-0.5); CALCIUM 8.9 mg/dL (8.4-11.0); CHLORIDE 104 mmol/L (98-107); CREATININE 0.93 mg/dL (0.55-1.30); GLUCOSE 91 mg/dL (70-99); POTASSIUM 4.8 mmol/L (3.5-5.1); SODIUM SERUM 138 mmol/L (136-145); UREA NITROGEN, BLOOD 22 mg/dL (8-21)
[2021-11-02] MEDS ORDERED: CEFEPIME 1 GM in D5W 50 ML IV ONE (09:30)
[2021-11-02 10:51] LABS: ERYTHROCYTE SEDIMENTATION RATE 106 MM/HR (0-20)
[2021-11-02 12:05] VITALS: BP_SYST 94
--- NOTE | 2021-11-02 12:10 | NUR ---
Patient Rounds Patient resting in bed. No SOB or no distress noted. Patient complained of pain 7/10 to left ankle will medicate with PRN medication if its due. All needs were met at this time and safety checks were in place. Will continue to monitor.
[2021-11-02] MEDS: HYDROcodone/ACETAMIN 10-325 MG TAB PO PRN ×2 (12:34→17:26)
[2021-11-02 16:05] VITALS: BP_SYST 120
[2021-11-02] MEDS: WARFARIN SODIUM 6 MG TABLET PO SCH (17:25)
--- NOTE | 2021-11-02 18:20 | NUR ---
Closing note Patient resting in bed. Patient has left lower foot ulcer, dressings were changed today. No pain, No SOB, No notable signs of distress noted. Patient's Midline to left upper arm which was placed on 10/30, is patent with no redness or pain. All needs met and safety checks in place with call light within reach. Will endorse to security shift manager nurse.
[2021-11-02 20:00] VITALS: BP_SYST 113
[2021-11-02] MEDS: CEFEPIME 1 GM in D5W 50 ML IV SCH (21:21)
[2021-11-02] MEDS: TEMAZEPAM 15 MG CAPSULE PO PRN (21:21)
[2021-11-03] MEDS: NORMAL SALINE 5 ML DISP.SYRIN IVF SCH ×3 (06:25→20:11)
--- NOTE | 2021-11-03 07:10 | NUR ---
PHYSICAL THERAPY CO-SIGN The Physical Therapy Progress Notes documented by Dough Sheeter have been reviewed. Reviewed/Co-Signed by: Marc Marroquin Documentation Done by: KENNEDY FRANKLIN PTA Addendum: 11/03/21 at 0710 by Marc Marroquin PT Amended: Links added.
[2021-11-03 07:12] LABS: INR 1.3 (0.8-1.2); PROTHROMBIN TIME 13.2 SECS (9.5-12.5)
--- NOTE | 2021-11-03 07:35 | NUR ---
Report received from EMELI Gonzales for continuity of care. Patient stable condition. Resting in bed. NPO. Will continue to monitor.
[2021-11-03 08:00] VITALS: BP_SYST 124
[2021-11-03 08:38] LABS: BASOPHILS % (AUTO) 0.4 % (0.0-2.0); EOSINOPHILS # (AUTO) 0.3 K/uL (0.0-0.4); EOSINOPHILS % (AUTO) 4.1 % (0.0-4.0); HEMATOCRIT 27.5 % (36-48); HEMOGLOBIN 9.2 g/dL (12.0-16.0); LYMPHOCYTES # (AUTO) 1.8 K/uL (1.0-5.5); LYMPHOCYTES % (AUTO) 25.8 % (20.5-51.5); MEAN CORPUSCULAR HEMOGLOBIN 29 pg (27-31); MEAN CORPUSCULAR HGB CONC 33 % (32-36); MEAN CORPUSCULAR VOLUME 88 fL (79.0-98.0); MONOCYTES # (AUTO) 0.8 K/uL (0.0-1.0); MONOCYTES % (AUTO) 11.4 % (1.7-9.3); NEUTROPHILS % (AUTO) 58.3 % (40.0-70.0); PLATELET COUNT (AUTO) 403 K/uL (130-430); RED BLOOD CELL COUNT(AUTO) 3.14 MIL/uL (4.2-6.2); RED CELL DISTRIBUTION WIDTH 15.3 % (9.0-15.0); WHITE BLOOD COUNT (AUTO) 6.9 K/uL (4.8-10.8)
[2021-11-03 08:59] LABS: ALANINE AMINOTRANSFERASE 17 U/L (12-78); ANION GAP 8 (5-15); ASPARTATE AMINOTRANSFERASE 18 U/L (10-37); C-REACTIVE PROTEIN QUANT 2.2 mg/dL (0-0.5); CALCIUM 8.8 mg/dL (8.4-11.0); CHLORIDE 104 mmol/L (98-107); CREATININE 1.12 mg/dL (0.55-1.30); GLUCOSE 84 mg/dL (70-99); POTASSIUM 4.4 mmol/L (3.5-5.1); SODIUM SERUM 141 mmol/L (136-145); TOTAL BILIRUBIN 0.2 mg/dL (0.0-1.0); UREA NITROGEN, BLOOD 27 mg/dL (8-21)
[2021-11-03] MEDS: BALSAM PERU/CASTOR OIL 56.7 GM OINT...G. TP SCH (09:00)
[2021-11-03] MEDS: GABAPENTIN 100 MG CAPSULE PO SCH ×2 (09:10→20:10)
[2021-11-03] MEDS: ATORVASTATIN 10 MG TABLET PO SCH (09:10)
[2021-11-03] MEDS: DOXYCYCLINE HYCLATE 100 MG CAPSULE PO SCH ×2 (09:10→20:20)
[2021-11-03] MEDS: CEFEPIME 1 GM in D5W 50 ML IV SCH ×2 (09:11→20:10)
[2021-11-03] MEDS ORDERED: TEMAZEPAM 15 MG CAPSULE PO PRN (09:15)
[2021-11-03] MEDS: HYDROcodone/ACETAMIN 10-325 MG TAB PO PRN ×3 (09:36→21:35)
[2021-11-03] MEDS ORDERED: HYDROcodone/ACETAMIN 5-325 MG TAB (NORCO/ VICODIN) PO PRN (10:30)
[2021-11-03] MEDS ORDERED: LORazepam 2 MG/ML VIAL IVP PRN (10:30)
[2021-11-03 12:00] VITALS: BP_SYST 136
[2021-11-03 12:27] LABS: ERYTHROCYTE SEDIMENTATION RATE 111 MM/HR (0-20)
--- NOTE | 2021-11-03 13:47 | NUR ---
Discharge appointments and vendors arranged by [employer] Worker. Dr. [facility] will call with date and time [phone] Home PT & Tx , resume wound care, IV administration Agency will call and schedule visit. Erika will deliver medication to home Outpatient wound care Auth#[id number] for [facility] Letter will be sent to patient Please call Patient Support Center [phone] for worsening symptoms or trouble getting your medicine. For care needs when provider office is closed, contact [facility] at [phone] or [facility] [phone].
[2021-11-03] MEDS ORDERED: WARFARIN SODIUM 4 MG TABLET PO SCH (18:00)
[2021-11-03 18:39] VITALS: BP_SYST 118
--- NOTE | 2021-11-03 19:09 | NUR ---
Spoke with patient regarding discharge instructions. No distress noted. Patient not aware of scheduled home health appointments with home health nurse or IV meds delivered to house yet. SANTI Diaz made aware. made aware.
--- NOTE | 2021-11-03 19:43 | NUR ---
Spoke with Dr. Díaz regarding patient in hospital. Patient did not have definitive information about IV antibiotics sent to home and time/date when the home health nurse was going to go to home to administer IV antibiotics. Explained to Dr. Díaz that patient's discharge paperwork was ready and patient was ready for discharge, but was not aware if home health was set up yet. CM to be followed up the next day. SANTI Diaz made aware.
[2021-11-03 20:00] VITALS: BP_SYST 121
[2021-11-03 20:27] VITALS: BP_SYST 132
[2021-11-04] MEDS: HYDROcodone/ACETAMIN 10-325 MG TAB PO PRN ×2 (04:35→09:40)
[2021-11-04] MEDS: NORMAL SALINE 5 ML DISP.SYRIN IVF SCH (04:36)
--- NOTE | 2021-11-04 05:14 | NUR ---
Patient in bed. No acute distress noted. Prn given for pain. Dressing changed to patient's lower left leg.
[2021-11-04 07:35] LABS: BASOPHILS # (AUTO) 0.1 K/uL (0.0-0.2); BASOPHILS % (AUTO) 0.8 % (0.0-2.0); EOSINOPHILS # (AUTO) 0.3 K/uL (0.0-0.4); EOSINOPHILS % (AUTO) 5.1 % (0.0-4.0); HEMATOCRIT 27.2 % (36-48); HEMOGLOBIN 9.1 g/dL (12.0-16.0); LYMPHOCYTES # (AUTO) 1.9 K/uL (1.0-5.5); LYMPHOCYTES % (AUTO) 30.6 % (20.5-51.5); MEAN CORPUSCULAR HEMOGLOBIN 29 pg (27-31); MEAN CORPUSCULAR HGB CONC 34 % (32-36); MEAN CORPUSCULAR VOLUME 88 fL (79.0-98.0); MONOCYTES # (AUTO) 0.7 K/uL (0.0-1.0); MONOCYTES % (AUTO) 11.2 % (1.7-9.3); NEUTROPHILS # (AUTO) 3.2 K/uL (1.8-7.7); NEUTROPHILS % (AUTO) 52.3 % (40.0-70.0); PLATELET COUNT (AUTO) 382 K/uL (130-430); RED CELL DISTRIBUTION WIDTH 15.3 % (9.0-15.0); WHITE BLOOD COUNT (AUTO) 6.1 K/uL (4.8-10.8)
[2021-11-04 07:50] LABS: INR 1.4 (0.8-1.2); PROTHROMBIN TIME 14.2 SECS (9.5-12.5)
[2021-11-04 08:00] VITALS: BP_SYST 120
[2021-11-04 08:01] LABS: ANION GAP 8 (5-15); C-REACTIVE PROTEIN QUANT 2.8 mg/dL (0-0.5); CALCIUM 8.5 mg/dL (8.4-11.0); CHLORIDE 105 mmol/L (98-107); CREATININE 1.09 mg/dL (0.55-1.30); GLUCOSE 91 mg/dL (70-99); POTASSIUM 4.3 mmol/L (3.5-5.1); SODIUM SERUM 141 mmol/L (136-145); UREA NITROGEN, BLOOD 44 mg/dL (8-21)
--- NOTE | 2021-11-04 08:01 | NUR ---
PHYSICAL THERAPY CO-SIGN The Physical Therapy Progress Notes documented by Pain Management Nurse Practitioner have been reviewed. Reviewed/Co-Signed by: Marc Marroquin Documentation Done by: KENNEDY FRANKLIN PTA Addendum: 11/04/21 at 0801 by Marc Marroquin PT Amended: Links added.
--- NOTE | 2021-11-04 08:39 | NUR ---
called patient this morning discussed discharge, informed her agency will contact patiet directly and medication should have been delivered last night.
--- NOTE | 2021-11-04 09:01 | NUR ---
called the floor spoke with Ray patient nurse , patient set up for discharge, needs last dose of abx before discharge home
[2021-11-04 09:25] LABS: ERYTHROCYTE SEDIMENTATION RATE 115 MM/HR (0-20)
[2021-11-04] MEDS: CEFEPIME 1 GM in D5W 50 ML IV SCH (09:40)
[2021-11-04] MEDS: DOXYCYCLINE HYCLATE 100 MG CAPSULE PO SCH (09:42)
[2021-11-04] MEDS: ATORVASTATIN 10 MG TABLET PO SCH (09:43)
[2021-11-04] MEDS: BALSAM PERU/CASTOR OIL 56.7 GM OINT...G. TP SCH (09:43)
[2021-11-04] MEDS: GABAPENTIN 100 MG CAPSULE PO SCH (09:43)
[2021-11-04 14:01] VITALS: BP_SYST 130
--- NOTE | 2021-11-04 14:30 | NUR ---
Patient called for dial a ride. Patient paperwork and education provided. No distress noted. Patient ambulatory with steady gait. Wheelchair provided for patient.
--- NOTE | 2021-11-05 07:46 | NUR ---
PHYSICAL THERAPY CO-SIGN The Physical Therapy Progress Notes documented by Quality Rep have been reviewed. Reviewed/Co-Signed by: Marc Marroquin Documentation Done by: KENNEDY FRANKLIN PTA Addendum: 11/05/21 at 0746 by Marc Marroquin PT Amended: Links added.
== END 2021-11-04 18:02 | disposition home health service (06) | DRG 871 ==
LOC: SED 14:56 → STU 17:08 → SMU 10-26 16:05
PROVIDERS: ADMIT Preventive Medicine Preventive Medicine/Occupational Environmental Medicine; ATTEND Preventive Medicine Preventive Medicine/Occupational Environmental Medicine
DX: A41.9 Sepsis, unspecified organism (principal); E43 Unspecified severe protein-calorie malnutrition; L97.929 Non-pressure chronic ulcer of unspecified part of left lower leg with unspecified severity; L03.116 Cellulitis of left lower limb; B95.2 Enterococcus as the cause of diseases classified elsewhere; B96.5 Pseudomonas (aeruginosa) (mallei) (pseudomallei) as the cause of diseases classified elsewhere; D64.9 Anemia, unspecified; D75.839 Thrombocytosis, unspecified; E83.52 Hypercalcemia; E88.09 Other disorders of plasma-protein metabolism, not elsewhere classified; I10 Essential (primary) hypertension; I87.2 Venous insufficiency (chronic) (peripheral); I83.92 Asymptomatic varicose veins of left lower extremity; L30.9 Dermatitis, unspecified; E66.9 Obesity, unspecified; R65.20 Severe sepsis without septic shock; Z20.822 Contact with and (suspected) exposure to COVID-19; Z86.73 Personal history of transient ischemic attack (TIA), and cerebral infarction without residual deficits; Z86.718 Personal history of other venous thrombosis and embolism; Z79.01 Long term (current) use of anticoagulants; Z79.899 Other long term (current) drug therapy; Z88.0 Allergy status to penicillin; Z88.2 Allergy status to sulfonamides; Z68.25 Body mass index [BMI] 25.0-25.9, adult
CPT/HCPCS: 36415; 71045; 73590-TC; 80048; 80053; 82550; 83605; 84484; 85025; 85610-TC; 85651-TC; 86140; 87040; 87070-TC; 87186-TC; 93005; 93970; 96361; 96365; 96366; 96375; 97110-GP; 97112-GP; 97116-GP; 97163-GP; 99291; G0378; J0692; J1885; J3370; J3430; J3490; J7030; J7060